=== PATIENT | male | born 1960 | race Caucasian/White ===

== ENCOUNTER 2017-11-26 22:05 | Emergency (ER) | payer MEDICARE ==
[~2017-11-26] VITALS: Ht 180.3 cm; Wt 93.0 kg
[2017-11-26] MEDS ORDERED: QUET25TA5 PO (22:26)
[2017-11-26] MEDS ORDERED: NAPR220C2 PO (22:26)
[2017-11-26] MEDS ORDERED: LAMO25TA52 PO (22:26)
[2017-11-26 22:43] LABS: MEAN CORPUSCULAR HEMOGLOBIN 23.4 pg (27.5-34.5); MEAN CORPUSCULAR HGB CONC 32.3 g/dL (33.2-36.2); MEAN CORPUSCULAR VOLUME 72.3 fL (81-97); PLATELET COUNT 979 x10^3/uL (130-400); RED BLOOD COUNT 3.77 x10^6/uL (4.38-5.82); RED CELL DISTRIBUTION WIDTH 17.7 % (9.4-14.8)
[2017-11-26 22:53] LABS: ALANINE AMINOTRANSFERASE 29 U/L (12-78); ALBUMIN 2.6 g/dL (3.4-5.0); ANION GAP 8 mmol/L (5-15); CALCIUM 8.9 mg/dL (8.5-10.1); CHLORIDE 106 mmol/L (98-107); CREATININE 1.08 mg/dL (0.7-1.3)
[2017-11-26 22:55] LABS: ALKALINE PHOSPHATASE 166 U/L (45-117); BILIRUBIN,TOTAL 0.3 mg/dL (0.2-1.0)
[2017-11-26 23:11] LABS: MD YES
[2017-11-26 23:14] LABS: ANISOCYTOSIS 1+; EOS#(MANUAL) 0.31 x10^3/uL (0.0-0.4); EOS% (MANUAL) 2 % (1-7); HYPOCHROMIA 1+; LYMPH#(MANUAL) 1.88 x10^3/uL (1-3.4); LYMPHS% (MANUAL) 12 % (22-44); MONOS#(MANUAL) 0.79 x10^3/uL (0.3-2.7); MONOS% (MANUAL) 5 % (2-9); SEG#(MANUAL) 12.72 x10^3/uL (1.8-6.8); SEGS% (MANUAL) 81 % (42-75)
[2017-11-26 23:15] LABS: <PLATELET ESTIMATE> INCREASED; <PLT MORPHOLOGY> NORMAL PLT MORPH
[2017-11-26] MEDS ORDERED: SODIUM CHLORIDE FLUSH 10ML SYR IVF ONE (23:30)
[2017-11-26] MEDS ORDERED: OMNIPAQUE 350 MG/ML, 100ML BOTTLE ONE (23:42)
[2017-11-27 00:30] VITALS: BP 133/79
== END 2017-11-27 00:58 | disposition home or self-care (01) ==
LOC: ED 23:30
DX: J18.1 Lobar pneumonia, unspecified organism (principal); D72.829 Elevated white blood cell count, unspecified; R91.8 Other nonspecific abnormal finding of lung field; Z85.46 Personal history of malignant neoplasm of prostate
CPT/HCPCS: 36415; 71046; 71275; 80053; 85025; 86480; 99285; Q9967

== ENCOUNTER 2017-12-11 17:29 | Emergency (ER) | payer MEDICARE ==
[~2017-12-11] VITALS: Ht 180.3 cm; Wt 97.7 kg
[~2017-12-11 17:29] MED LIST: LAMO25TA52 PO; NAPR220C2 PO; QUET25TA5 PO
[2017-12-11] MEDS ORDERED: HYDROmorphone 2 MG/ML, 1ML ONE (18:27)
[2017-12-11] MEDS ORDERED: HYDROmorphone 1 MG/ML, 1ML IM ONE (18:30)
[2017-12-11 18:56] VITALS: BP 123/71
== END 2017-12-11 20:08 | disposition home or self-care (01) ==
LOC: ED 19:24
DX: M54.6 Pain in thoracic spine (principal); Z85.46 Personal history of malignant neoplasm of prostate; Z90.89 Acquired absence of other organs; Z90.49 Acquired absence of other specified parts of digestive tract; Z87.891 Personal history of nicotine dependence
CPT/HCPCS: 71045; 72072; 96372; 99284; J1170

== ENCOUNTER → 2018-01-09 | Outpatient (CLI) | payer MEDICARE ==
[~2018-01-09] MED LIST changes: +OMNIPAQUE 350 MG/ML, 100ML BOTTLE ONE
== END | disposition home or self-care (01) ==
LOC: PETCFH 08:15
PROVIDERS: ATTEND Specialist
DX: C79.51 Secondary malignant neoplasm of bone (principal); C61 Malignant neoplasm of prostate; J18.9 Pneumonia, unspecified organism; R59.0 Localized enlarged lymph nodes
CPT/HCPCS: 71260; 74177; 78306; A9503; Q9967

== ENCOUNTER 2018-01-24 11:34 | Inpatient (IN) | payer MEDICARE ==
[~2018-01-24] VITALS: Ht 180.3 cm; Wt 90.4 kg
[~2018-01-24 11:34] MED LIST changes: -OMNIPAQUE 350 MG/ML, 100ML BOTTLE ONE
[2018-01-24] MEDS ORDERED: SODIUM CHLORIDE 0.9% 1,000 ML IV ONE (12:20)
[2018-01-24] MEDS ORDERED: SODIUM CHLORIDE FLUSH 10ML SYR IVF ONE (12:30)
[2018-01-24] MEDS ORDERED: ONDANSETRON 2MG/ML, 2ML IVPush ONE (12:30)
[2018-01-24] MEDS ORDERED: MORPHINE SULFATE 4 MG/ML, 1ML IVPush PRN (12:30)
[2018-01-24] MEDS ORDERED: ONDANSETRON 2MG/ML, 2ML ONE (12:34)
[2018-01-24] MEDS ORDERED: MORPHINE SULFATE 4 MG/ML, 1ML ONE (12:35)
[2018-01-24 12:59] LABS: MEAN CORPUSCULAR HEMOGLOBIN 22.6 pg (27.5-34.5); MEAN CORPUSCULAR VOLUME 70.8 fL (81-97); MEAN PLATELET VOLUME 7.6 fL (7.4-10.4); PLATELET COUNT 662 x10^3/uL (130-400); RED BLOOD COUNT 4.02 x10^6/uL (4.38-5.82); RED CELL DISTRIBUTION WIDTH 20.1 % (9.4-14.8)
[2018-01-24 13:08] LABS: ALANINE AMINOTRANSFERASE 20 U/L (12-78); ALBUMIN 2.4 g/dL (3.4-5.0); ANION GAP 10 mmol/L (5-15); CALCIUM 8.9 mg/dL (8.5-10.1); CHLORIDE 101 mmol/L (98-107); CREATININE 0.96 mg/dL (0.7-1.3)
[2018-01-24 13:10] LABS: ALKALINE PHOSPHATASE 126 U/L (45-117); BILIRUBIN,TOTAL 0.4 mg/dL (0.2-1.0); TOTAL PROTEIN 7.5 g/dL (6.4-8.2)
[2018-01-24 13:16] LABS: MD YES
[2018-01-24 13:19] LABS: BANDS%(MANUAL) 6 % (0-7); EOS#(MANUAL) 0.13 x10^3/uL (0.0-0.4); EOS% (MANUAL) 1 % (1-7); LYMPH#(MANUAL) 1.47 x10^3/uL (1-3.4); LYMPHS% (MANUAL) 11 % (22-44); MONOS#(MANUAL) 1.61 x10^3/uL (0.3-2.7); MONOS% (MANUAL) 12 % (2-9); SEG#(MANUAL) 9.38 x10^3/uL (1.8-6.8); SEGS% (MANUAL) 70 % (42-75)
[2018-01-24 13:20] LABS: <PLATELET ESTIMATE> INCREASED; <PLT MORPHOLOGY> NORMAL PLT MORPH; ANISOCYTOSIS 1+; HYPOCHROMIA 1+; POLYCHROMASIA 1+
[2018-01-24 13:21] LABS: MICROCYTOSIS 1+
[2018-01-24] MEDS ORDERED: OMNIPAQUE 350 MG/ML, 100ML BOTTLE ONE (14:13)
[2018-01-24] MEDS ORDERED: DOCUSATE 100 MG CAPSULE PO PRN (16:00)
[2018-01-24] MEDS ORDERED: POLYETHYLENE GLYCOL 17 GM PACKET PO PRN (16:00)
[2018-01-24] MEDS ORDERED: OXYcodone IR 5MG TABLET PO PRN (16:00)
[2018-01-24] MEDS ORDERED: NS + 20MEQ KCL 1,000 ML IV SCH (17:00)
[2018-01-24] MEDS: ONDANSETRON 2MG/ML, 2ML IVPush PRN (17:15)
[2018-01-24] MEDS: morphine SULFATE 10 MG/ML, 1ML IVPush PRN ×3 (17:15→23:54)
[2018-01-24 17:31] VITALS: BP 115/70
[2018-01-24 20:31] VITALS: BP 122/77
[2018-01-24 20:38] VITALS: BP 127/71
[2018-01-24] MEDS: LAMOTRIGINE 25 MG TABLET PO SCH (20:42)
[2018-01-24] MEDS: FAMOTIDINE 20 MG TABLET PO SCH (20:42)
[2018-01-24] MEDS: QUETIAPINE 25MG TABLET PO SCH (20:42)
[2018-01-24 22:01] LABS: CLOSTRIDIUM DIFFICILE ANTIGEN NEGATIVE; CLOSTRIDIUM DIFFICILE TOXIN NEGATIVE (Negative)
[2018-01-25 00:56] VITALS: BP 115/70
[2018-01-25] MEDS: morphine SULFATE 10 MG/ML, 1ML IVPush PRN ×3 (03:12→10:09)
[2018-01-25 05:18] LABS: MEAN CORPUSCULAR HEMOGLOBIN 23.1 pg (27.5-34.5); MEAN CORPUSCULAR HGB CONC 32.5 g/dL (33.2-36.2); MEAN CORPUSCULAR VOLUME 71.1 fL (81-97); MEAN PLATELET VOLUME 7.7 fL (7.4-10.4); PLATELET COUNT 598 x10^3/uL (130-400); RED BLOOD COUNT 3.74 x10^6/uL (4.38-5.82); RED CELL DISTRIBUTION WIDTH 20.2 % (9.4-14.8)
[2018-01-25 05:23] LABS: ANION GAP 7 mmol/L (5-15); CALCIUM 8.7 mg/dL (8.5-10.1); CHLORIDE 108 mmol/L (98-107); CREATININE 0.92 mg/dL (0.7-1.3)
[2018-01-25 06:01] LABS: BASOPHILS % (AUTO) 0 % (0-1); EOSINOPHILS % (AUTO) 1 % (1-7); LYMPHOCYTES # (AUTO) 0.83 x10^3/uL (1-3.4); LYMPHOCYTES % (AUTO) 8 % (22-44); MD SCAN; MONOCYTES # (AUTO) 1.77 x10^3/uL (0.2-0.8); MONOCYTES % (AUTO) 16 % (2-9); NEUTROPHILS # (AUTO) 8.31 x10^3/uL (1.8-6.8); NEUTROPHILS % (AUTO) 76 % (42-75)
[2018-01-25] MEDS: ONDANSETRON 2MG/ML, 2ML IVPush PRN ×2 (06:46→17:03)
[2018-01-25 08:19] VITALS: BP 112/70
[2018-01-25] MEDS: FAMOTIDINE 20 MG TABLET PO SCH ×2 (08:29→20:46)
[2018-01-25] MEDS: SENNA/DOCUSATE TABLET PO SCH (08:29)
[2018-01-25] MEDS: LAMOTRIGINE 25 MG TABLET PO SCH ×2 (08:29→20:46)
[2018-01-25] MEDS ORDERED: HYDROmorphone 2 MG/ML, 1ML ONE ×3 (12:58→20:55)
[2018-01-25] MEDS: HYDROmorphone 1 MG/ML, 1ML IV PRN ×3 (13:03→20:57)
[2018-01-25 14:28] VITALS: BP 127/75
[2018-01-25 18:03] LABS: BASOPHILS # (AUTO) 0.06 x10^3/uL (0-0.1); BASOPHILS % (AUTO) 1 % (0-1); EOSINOPHILS # (AUTO) 0.03 x10^3/uL (0-0.4); EOSINOPHILS % (AUTO) 0 % (1-7); LYMPHOCYTES # (AUTO) 1.09 x10^3/uL (1-3.4); LYMPHOCYTES % (AUTO) 9 % (22-44); MD NO; MEAN CORPUSCULAR HEMOGLOBIN 21.7 pg (27.5-34.5); MEAN CORPUSCULAR HGB CONC 31.2 g/dL (33.2-36.2); MEAN CORPUSCULAR VOLUME 69.6 fL (81-97); MONOCYTES # (AUTO) 1.69 x10^3/uL (0.2-0.8); MONOCYTES % (AUTO) 14 % (2-9); NEUTROPHILS # (AUTO) 9.18 x10^3/uL (1.8-6.8); NEUTROPHILS % (AUTO) 76 % (42-75); PLATELET COUNT 742 x10^3/uL (130-400); RED BLOOD COUNT 4.32 x10^6/uL (4.38-5.82); RED CELL DISTRIBUTION WIDTH 20.1 % (9.4-14.8)
[2018-01-25 18:47] VITALS: BP 112/70
[2018-01-25] MEDS: QUETIAPINE 25MG TABLET PO SCH (20:46)
[2018-01-26] MEDS ORDERED: HYDROmorphone 2 MG/ML, 1ML ONE ×5 (00:53→19:41)
[2018-01-26] MEDS: HYDROmorphone 1 MG/ML, 1ML IV PRN ×5 (00:54→19:44)
[2018-01-26 01:06] VITALS: BP 109/68
[2018-01-26 04:36] LABS: MEAN CORPUSCULAR HEMOGLOBIN 22.2 pg (27.5-34.5); MEAN CORPUSCULAR HGB CONC 31.4 g/dL (33.2-36.2); MEAN CORPUSCULAR VOLUME 70.8 fL (81-97); RED BLOOD COUNT 3.88 x10^6/uL (4.38-5.82); RED CELL DISTRIBUTION WIDTH 20.3 % (9.4-14.8)
[2018-01-26 04:51] LABS: BASOPHILS # (AUTO) 0.03 x10^3/uL (0-0.1); BASOPHILS % (AUTO) 0 % (0-1); EOSINOPHILS # (AUTO) 0.25 x10^3/uL (0-0.4); EOSINOPHILS % (AUTO) 3 % (1-7); LYMPHOCYTES # (AUTO) 1.03 x10^3/uL (1-3.4); LYMPHOCYTES % (AUTO) 11 % (22-44); MD SCAN; MEAN PLATELET VOLUME 8.1 fL (7.4-10.4); MONOCYTES # (AUTO) 1.59 x10^3/uL (0.2-0.8); MONOCYTES % (AUTO) 16 % (2-9); NEUTROPHILS # (AUTO) 6.88 x10^3/uL (1.8-6.8); NEUTROPHILS % (AUTO) 70 % (42-75); PLATELET COUNT 573 x10^3/uL (130-400)
[2018-01-26 08:08] VITALS: BP 122/73
[2018-01-26] MEDS: SENNA/DOCUSATE TABLET PO SCH (09:00)
[2018-01-26] MEDS: LAMOTRIGINE 25 MG TABLET PO SCH ×2 (09:26→21:38)
[2018-01-26] MEDS: FAMOTIDINE 20 MG TABLET PO SCH ×2 (09:27→21:38)
[2018-01-26] MEDS: ONDANSETRON 2MG/ML, 2ML IVPush PRN ×2 (12:40→19:45)
[2018-01-26 12:53] VITALS: BP 138/83
[2018-01-26 18:43] VITALS: BP 147/73
[2018-01-26] MEDS: QUETIAPINE 25MG TABLET PO SCH (21:38)
[2018-01-27] MEDS ORDERED: HYDROmorphone 2 MG/ML, 1ML ONE ×2 (00:14→04:15)
[2018-01-27] MEDS: HYDROmorphone 1 MG/ML, 1ML IV PRN ×2 (00:18→04:19)
[2018-01-27 00:58] VITALS: BP 109/67
[2018-01-27] MEDS: ONDANSETRON 2MG/ML, 2ML IVPush PRN (04:20)
[2018-01-27 04:33] LABS: MEAN CORPUSCULAR HGB CONC 31.3 g/dL (33.2-36.2); MEAN CORPUSCULAR VOLUME 70.1 fL (81-97); MEAN PLATELET VOLUME 7.2 fL (7.4-10.4); PLATELET COUNT 781 x10^3/uL (130-400); RED BLOOD COUNT 4.41 x10^6/uL (4.38-5.82); RED CELL DISTRIBUTION WIDTH 20.3 % (9.4-14.8)
[2018-01-27 05:43] LABS: BASOPHILS # (AUTO) 0.05 x10^3/uL (0-0.1); BASOPHILS % (AUTO) 0 % (0-1); EOSINOPHILS # (AUTO) 0.18 x10^3/uL (0-0.4); EOSINOPHILS % (AUTO) 1 % (1-7); LYMPHOCYTES # (AUTO) 1.19 x10^3/uL (1-3.4); LYMPHOCYTES % (AUTO) 9 % (22-44); MD SCAN; MONOCYTES # (AUTO) 1.66 x10^3/uL (0.2-0.8); MONOCYTES % (AUTO) 12 % (2-9); NEUTROPHILS % (AUTO) 78 % (42-75)
[2018-01-27 07:08] VITALS: BP 124/83
[2018-01-27] MEDS: SENNA/DOCUSATE TABLET PO SCH (09:00)
[2018-01-27] MEDS: FAMOTIDINE 20 MG TABLET PO SCH ×2 (09:45→21:33)
[2018-01-27] MEDS: LAMOTRIGINE 25 MG TABLET PO SCH ×2 (09:45→21:33)
[2018-01-27] MEDS: HYDROmorphone 2 MG/ML, 1ML IV PRN ×4 (09:48→21:33)
[2018-01-27 13:12] VITALS: BP 127/80
[2018-01-27 18:45] VITALS: BP 118/74
[2018-01-27] MEDS: QUETIAPINE 25MG TABLET PO SCH (21:33)
[2018-01-28] MEDS: HYDROmorphone 2 MG/ML, 1ML IV PRN ×7 (00:47→23:34)
[2018-01-28 01:11] VITALS: BP 109/59
[2018-01-28 07:49] LABS: MEAN CORPUSCULAR HEMOGLOBIN 22.2 pg (27.5-34.5); MEAN CORPUSCULAR HGB CONC 31.8 g/dL (33.2-36.2); MEAN CORPUSCULAR VOLUME 69.8 fL (81-97); MEAN PLATELET VOLUME 7.3 fL (7.4-10.4); PLATELET COUNT 762 x10^3/uL (130-400); RED BLOOD COUNT 4.32 x10^6/uL (4.38-5.82); RED CELL DISTRIBUTION WIDTH 20.1 % (9.4-14.8)
[2018-01-28 08:00] VITALS: BP 116/73
[2018-01-28] MEDS: LAMOTRIGINE 25 MG TABLET PO SCH ×2 (08:06→20:26)
[2018-01-28] MEDS: FAMOTIDINE 20 MG TABLET PO SCH ×2 (08:06→20:26)
[2018-01-28] MEDS: SENNA/DOCUSATE TABLET PO SCH (09:00)
[2018-01-28 09:53] LABS: MD YES
[2018-01-28 09:55] LABS: EOS#(MANUAL) 0.25 x10^3/uL (0.0-0.4); EOS% (MANUAL) 2 % (1-7); LYMPH#(MANUAL) 2.11 x10^3/uL (1-3.4); LYMPHS% (MANUAL) 17 % (22-44)
[2018-01-28 09:57] LABS: BAND#(MANUAL) 1.49 x10^3/uL; BANDS%(MANUAL) 12 % (0-7)
[2018-01-28 09:58] LABS: ANISOCYTOSIS 1+; HYPOCHROMIA 1+; MICROCYTOSIS 1+; MONOS#(MANUAL) 2.11 x10^3/uL (0.3-2.7); MONOS% (MANUAL) 17 % (2-9); SEG#(MANUAL) 6.45 x10^3/uL (1.8-6.8); SEGS% (MANUAL) 52 % (42-75)
[2018-01-28 09:59] LABS: <PLATELET ESTIMATE> INCREASED; <PLT MORPHOLOGY> NORMAL PLT MORPH; POLYCHROMASIA 1+; TOXIC GRAN 1+
[2018-01-28] MEDS: OXYcodone IR 5MG TABLET PO PRN ×3 (13:07→22:00)
[2018-01-28] MEDS: ONDANSETRON 2MG/ML, 2ML IVPush PRN (14:03)
[2018-01-28 14:20] VITALS: BP 123/84
[2018-01-28] MEDS: LORazepam 1MG TABLET PO PRN ×2 (18:45→23:38)
[2018-01-28 19:50] VITALS: BP 137/74
[2018-01-28] MEDS: QUETIAPINE 25MG TABLET PO SCH (20:26)
[2018-01-29 00:38] VITALS: BP 115/75
[2018-01-29] MEDS: OXYcodone IR 5MG TABLET PO PRN ×5 (02:04→21:57)
[2018-01-29] MEDS: LORazepam 1MG TABLET PO PRN ×3 (04:04→18:21)
[2018-01-29 06:42] VITALS: BP 124/77
[2018-01-29] MEDS: LAMOTRIGINE 25 MG TABLET PO SCH ×2 (08:19→20:31)
[2018-01-29] MEDS: FAMOTIDINE 20 MG TABLET PO SCH ×2 (08:19→20:32)
[2018-01-29] MEDS: SENNA/DOCUSATE TABLET PO SCH (08:19)
[2018-01-29] MEDS: ONDANSETRON 2MG/ML, 2ML IVPush PRN ×3 (08:24→19:42)
[2018-01-29] MEDS: HYDROmorphone 2 MG/ML, 1ML IV PRN ×3 (12:55→20:31)
[2018-01-29 13:32] VITALS: BP 138/74
[2018-01-29 18:30] VITALS: BP 136/77
[2018-01-29] MEDS: QUETIAPINE 25MG TABLET PO SCH (20:32)
[2018-01-30 00:20] VITALS: BP 126/78
[2018-01-30] MEDS: LORazepam 1MG TABLET PO PRN ×2 (01:47→19:51)
[2018-01-30] MEDS: OXYcodone IR 5MG TABLET PO PRN ×5 (04:11→21:26)
[2018-01-30 07:19] VITALS: BP 128/66
[2018-01-30] MEDS: LAMOTRIGINE 25 MG TABLET PO SCH ×2 (07:43→21:26)
[2018-01-30] MEDS: FAMOTIDINE 20 MG TABLET PO SCH ×2 (07:43→21:26)
[2018-01-30] MEDS: ONDANSETRON 2MG/ML, 2ML IVPush PRN ×4 (07:43→21:26)
[2018-01-30] MEDS: SENNA/DOCUSATE TABLET PO SCH (07:43)
[2018-01-30] MEDS: HYDROmorphone 2 MG/ML, 1ML IV PRN ×2 (09:48→14:22)
[2018-01-30] MEDS: PROMETHAZINE 25 MG/ML, 1ML IM PRN (10:10)
[2018-01-30 13:15] VITALS: BP 109/71
[2018-01-30 19:43] VITALS: BP 104/67
[2018-01-30] MEDS: ACETAMINOPHEN 325 MG TABLET PO PRN (19:51)
[2018-01-30] MEDS: QUETIAPINE 25MG TABLET PO SCH (21:26)
[2018-01-31 01:26] VITALS: BP 110/65
[2018-01-31] MEDS: OXYcodone IR 5MG TABLET PO PRN ×4 (01:30→20:27)
[2018-01-31] MEDS: ONDANSETRON 2MG/ML, 2ML IVPush PRN (01:30)
[2018-01-31 07:22] VITALS: BP 115/69
[2018-01-31] MEDS: SENNA/DOCUSATE TABLET PO SCH (08:13)
[2018-01-31] MEDS: LAMOTRIGINE 25 MG TABLET PO SCH ×2 (08:13→20:27)
[2018-01-31] MEDS: FAMOTIDINE 20 MG TABLET PO SCH ×2 (08:13→20:27)
[2018-01-31] MEDS: HYDROmorphone 2 MG/ML, 1ML IV PRN ×2 (10:57→16:50)
[2018-01-31 12:22] VITALS: BP 106/68
[2018-01-31] MEDS: QUETIAPINE 25MG TABLET PO SCH (20:27)
[2018-01-31] MEDS: LORazepam 1MG TABLET PO PRN (20:27)
[2018-01-31 20:28] VITALS: BP 100/59
[2018-02-01] MEDS: OXYcodone IR 5MG TABLET PO PRN ×5 (00:32→22:43)
[2018-02-01] MEDS: ACETAMINOPHEN 325 MG TABLET PO PRN (01:58)
[2018-02-01 02:23] VITALS: BP 85/50
[2018-02-01 07:27] LABS: MEAN CORPUSCULAR HEMOGLOBIN 21.9 pg (27.5-34.5); MEAN CORPUSCULAR HGB CONC 31.5 g/dL (33.2-36.2); MEAN CORPUSCULAR VOLUME 69.5 fL (81-97); MEAN PLATELET VOLUME 7.4 fL (7.4-10.4); PLATELET COUNT 688 x10^3/uL (130-400); RED BLOOD COUNT 3.96 x10^6/uL (4.38-5.82); RED CELL DISTRIBUTION WIDTH 19.7 % (9.4-14.8)
[2018-02-01] MEDS: FAMOTIDINE 20 MG TABLET PO SCH ×2 (07:56→22:42)
[2018-02-01] MEDS: HYDROmorphone 2 MG/ML, 1ML IV PRN ×3 (07:56→19:26)
[2018-02-01] MEDS: LAMOTRIGINE 25 MG TABLET PO SCH ×2 (07:56→22:42)
[2018-02-01] MEDS: SENNA/DOCUSATE TABLET PO SCH (07:56)
[2018-02-01] MEDS: LORazepam 1MG TABLET PO PRN ×2 (08:03→22:43)
[2018-02-01 08:07] LABS: MD YES
[2018-02-01 08:09] LABS: BAND#(MANUAL) 2.28 x10^3/uL; BANDS%(MANUAL) 20 % (0-7); LYMPH#(MANUAL) 0.91 x10^3/uL (1-3.4); LYMPHS% (MANUAL) 8 % (22-44); MONOS#(MANUAL) 1.25 x10^3/uL (0.3-2.7); MONOS% (MANUAL) 11 % (2-9)
[2018-02-01 08:10] LABS: ANISOCYTOSIS 1+; EOS#(MANUAL) 0.46 x10^3/uL (0.0-0.4); EOS% (MANUAL) 4 % (1-7); HYPOCHROMIA 1+; MICROCYTOSIS 1+; POLYCHROMASIA 1+; SEGS% (MANUAL) 57 % (42-75)
[2018-02-01 08:11] LABS: <PLATELET ESTIMATE> INCREASED; <PLT MORPHOLOGY> NORMAL PLT MORPH; TOXIC GRAN 1+
[2018-02-01 09:22] VITALS: BP 106/73
[2018-02-01] MEDS: ONDANSETRON 2MG/ML, 2ML IVPush PRN ×2 (11:55→17:25)
[2018-02-01 14:11] VITALS: BP 122/74
[2018-02-01 14:22] LABS: MICROSCOPIC NOT IND
[2018-02-01 19:10] VITALS: BP 133/77
[2018-02-01] MEDS: QUETIAPINE 25MG TABLET PO SCH (22:42)
[2018-02-02 02:00] VITALS: BP 117/74
[2018-02-02] MEDS: OXYcodone IR 5MG TABLET PO PRN ×5 (02:30→20:55)
[2018-02-02] MEDS: ONDANSETRON 2MG/ML, 2ML IVPush PRN ×2 (08:13→13:44)
[2018-02-02] MEDS: FAMOTIDINE 20 MG TABLET PO SCH ×2 (08:13→20:56)
[2018-02-02] MEDS: SENNA/DOCUSATE TABLET PO SCH (08:13)
[2018-02-02] MEDS: LAMOTRIGINE 25 MG TABLET PO SCH ×2 (08:13→20:56)
[2018-02-02] MEDS: HYDROmorphone 2 MG/ML, 1ML IV PRN ×2 (08:13→13:44)
[2018-02-02 08:25] VITALS: BP 122/77
[2018-02-02] MEDS: MAGNESIUM HYDROXIDE 8%, 30ML UDC PO SCH (11:35)
[2018-02-02 13:45] VITALS: BP 112/77
[2018-02-02] MEDS: LORazepam 1MG TABLET PO PRN ×2 (17:36→21:00)
[2018-02-02 18:59] VITALS: BP 102/64
[2018-02-02] MEDS: QUETIAPINE 25MG TABLET PO SCH (20:56)
[2018-02-03] MEDS: OXYcodone IR 5MG TABLET PO PRN ×5 (01:04→21:02)
[2018-02-03] MEDS: LORazepam 1MG TABLET PO PRN ×4 (01:04→16:32)
[2018-02-03 01:05] VITALS: BP 104/72
[2018-02-03 07:45] VITALS: BP 101/75
[2018-02-03] MEDS: FAMOTIDINE 20 MG TABLET PO SCH ×2 (08:55→21:02)
[2018-02-03] MEDS: MAGNESIUM HYDROXIDE 8%, 30ML UDC PO SCH (08:55)
[2018-02-03] MEDS: LAMOTRIGINE 25 MG TABLET PO SCH ×2 (08:55→21:02)
[2018-02-03] MEDS: SENNA/DOCUSATE TABLET PO SCH (08:56)
[2018-02-03] MEDS ORDERED: ACET325T14 PO (10:34)
[2018-02-03] MEDS ORDERED: DOCU-131 PO (10:34)
[2018-02-03 14:00] VITALS: BP 120/77
[2018-02-03] MEDS: ONDANSETRON 2MG/ML, 2ML IVPush PRN (14:17)
[2018-02-03] MEDS: HYDROmorphone 2 MG/ML, 1ML IV PRN (18:34)
[2018-02-03 19:15] VITALS: BP 99/67
[2018-02-03] MEDS: QUETIAPINE 25MG TABLET PO SCH (21:02)
[2018-02-03] MEDS: PROMETHAZINE 25 MG/ML, 1ML IM PRN (21:03)
== END 2018-02-03 22:00 | disposition hospice, home (50) | DRG 722 ==
LOC: ED 12:27 → EDIP 15:35 → SUATTDRO 15:35 → 3NW 16:52
PROVIDERS: ADMIT Family Medicine; ATTEND Family Medicine
DX: C61 Malignant neoplasm of prostate (principal); E43 Unspecified severe protein-calorie malnutrition; K62.5 Hemorrhage of anus and rectum; C78.00 Secondary malignant neoplasm of unspecified lung; C77.9 Secondary and unspecified malignant neoplasm of lymph node, unspecified; C79.51 Secondary malignant neoplasm of bone; D62 Acute posthemorrhagic anemia; D12.5 Benign neoplasm of sigmoid colon; D63.0 Anemia in neoplastic disease; F12.90 Cannabis use, unspecified, uncomplicated; K21.9 Gastro-esophageal reflux disease without esophagitis; K52.3 Indeterminate colitis; Z51.5 Encounter for palliative care; Z66 Do not resuscitate; D47.3 Essential (hemorrhagic) thrombocythemia; K59.00 Constipation, unspecified; G89.29 Other chronic pain; K63.9 Disease of intestine, unspecified; Z68.27 Body mass index [BMI] 27.0-27.9, adult; Z90.49 Acquired absence of other specified parts of digestive tract; Z87.891 Personal history of nicotine dependence; Z85.46 Personal history of malignant neoplasm of prostate
CPT/HCPCS: 36415; 74177; 80048; 80053; 81003; 83605; 83735; 84100; 85025; 86677; 87040; 87324; 89055; 96374; 96375; 99285; G0378; J1170; J2405; J2550; J3480; Q9967; J2270; J7030